=== PATIENT | male | born 1955 | race Caucasian/White ===

== ENCOUNTER 2024-04-06 22:50 | Emergency (ER) | payer SELFPAY ==
[2024-04-06 23:02] LABS: BASOPHILS ABSOLUTE AUTO 0.04 K/uL (0.00-0.20); BASOPHILS PERCENT AUTO 0.7 % (0.0-1.0); EOSINOPHILS ABSOLUTE AUTO 0.18 K/uL (0.00-0.45); EOSINOPHILS PERCENT AUTO 3.1 % (0.0-6.0); HEMATOCRIT 46.3 % (42.0-52.0); HEMOGLOBIN 15.6 g/dL (14.0-18.0); IMMATURE GRAN ABSOLUTE AUTO 0.03 K/uL (0.00-0.05); IMMATURE GRAN PERCENT AUTO 0.5 % (0.0-0.4); LYMPHOCYTES ABSOLUTE AUTO 1.59 K/uL (1.00-4.80); LYMPHOCYTES PERCENT AUTO 26.9 % (24.0-44.0); MEAN CORPUSCULAR HEMOGLOBIN 30.7 pg (28.0-32.0); MEAN CORPUSCULAR HGB CONC 33.7 g/dL (32.0-36.0); MEAN CORPUSCULAR VOLUME 91.1 fL (83.0-99.0); MEAN PLATELET VOLUME 11.3 fL (9.4-12.4); MONOCYTES ABSOLUTE AUTO 0.42 K/uL (0.00-0.80); MONOCYTES PERCENT AUTO 7.1 % (0.0-8.0); NEUTROPHILS ABSOLUTE AUTO 3.64 K/uL (1.80-7.70); NEUTROPHILS PERCENT AUTO 61.7 % (41.0-71.0); PLATELET COUNT,PLT 187 K/uL (150-400); RED BLOOD CELL COUNT 5.08 M/uL (4.52-5.90)
[2024-04-06 23:04] LABS: BASE EXCESS VENOUS -3.7 (-2.0-3.0); PH,VENOUS 7.25 (7.31-7.41)
[2024-04-06] MEDS: Furosemide 40 MG/4 ML VIAL IVPUSH ONE ×2 (23:07→23:53)
[2024-04-06] MEDS: Nitroglycerin/D5W 25 MG/250 ML BOTTLE IV SCH (23:20)
[2024-04-06 23:21] LABS: BICARBONATE,ARTERIAL 22 mEq/L (22-26); PCO2 ARTERIAL 37 mmHG (35-45); PO2 ARTERIAL 62 mmHG (80-105)
[2024-04-06] MEDS: cefTRIAXone 2 GM in Sodium Chloride 0.9% 50 ML IV ONE (23:34)
[2024-04-06 23:43] LABS: CORONAVIRUS COVID-19 NAA NEGATIVE (NEGATIVE); INFLUENZA A NAA NEGATIVE (NEGATIVE); INFLUENZA B NAA NEGATIVE (NEGATIVE); RESPIRATORY SYNCYTIAL VIR NAA NEGATIVE (NEGATIVE)
[2024-04-06 23:43] LABS: APPEARANCE,URINE CLEAR; BILIRUBIN,URINE NEGATIVE (NEGATIVE); COLOR,URINE YELLOW; GLUCOSE,URINE NEGATIVE (NEGATIVE); KETONES,URINE NEGATIVE (NEGATIVE); LEUKOCYTE ESTERASE,URINE NEGATIVE (NEGATIVE); NITRITE,URINE NEGATIVE (NEGATIVE); OCCULT BLOOD,URINE NEGATIVE (NEGATIVE); PROTEIN,URINE 30 mg/dL (NEGATIVE); UROBILINOGEN,URINE 0.2 EU/dL (<2.0)
[2024-04-06 23:44] LABS: A/G RATIO 0.8 (0.9-1.6); ALBUMIN 3.2 g/dL (3.4-5.0); BILIRUBIN TOTAL 0.3 mg/dL (0.2-1.0); CALCIUM 8.6 mg/dL (8.5-10.1); CARBON DIOXIDE,CO2 27.7 mmol/L (21.0-32.0); CREATININE 1.6 mg/dL (0.8-1.3); EST CRCL DRUG DOSING (CG) 39.88 mL/min; POTASSIUM,K 4.3 mmol/L (3.5-5.1)
[2024-04-07] MEDS: Azithromycin 500 MG in Sodium Chloride 0.9% 250 ML IV ONE (00:06)
[2024-04-07 00:35] LABS: BACTERIA,URINE RARE (NEGATIVE); EPITHELIAL CELLS,URINE FEW (NONE-FEW)
[2024-04-07] MEDS: Iopamidol 755 MG/ML 500 ML Multipack Bottle IVPUSH ONE (01:48)
[2024-04-07] MEDS: Aspirin 81 MG Tab.Chew PO ONE (02:11)
[2024-04-07] MEDS: Heparin Sodium 5,000 Units/ML Vial IVPUSH ONE (02:16)
[2024-04-07] MEDS: Heparin Sodium/0.45% NaCl 500 ML IV SCH (02:29)
[2024-04-07 03:18] LABS: BASE EXCESS VENOUS -2.5 (-2.0-3.0); PH,VENOUS 7.38 (7.31-7.41)
== END 2024-04-07 04:15 ==
LOC: MW.ED 22:50
DX: I21.4 Non-ST elevation (NSTEMI) myocardial infarction (principal); J96.00 Acute respiratory failure, unspecified whether with hypoxia or hypercapnia; J81.1 Chronic pulmonary edema; I16.1 Hypertensive emergency; I11.0 Hypertensive heart disease with heart failure; I50.9 Heart failure, unspecified; N17.9 Acute kidney failure, unspecified; R79.89 Other specified abnormal findings of blood chemistry; I25.10 Atherosclerotic heart disease of native coronary artery without angina pectoris; Z75.8 Other problems related to medical facilities and other health care
CPT/HCPCS: 0241U; 36415; 36600; 71045; 71275; 80053; 81001; 82803; 83605; 83690; 83735; 83880; 84484; 85025; 85379; 85730; 87040; 93005; 96365; 96366; 96367; 96368; 96375; 96376; 99285; A9270; J0456; J0696; J1644; J1940; J2305; J3490; J7050; Q9967